=== PATIENT | male | born 1965 | race Hispanic/Latino ===

== ENCOUNTER 2017-08-11 19:56 | Emergency (ER) | payer MEDICARE, MEDICAID ==
[~2017-08-11] VITALS: Ht 167.6 cm; Wt 85.3 kg
[2017-08-11 20:00] VITALS: BP 151/82
[2017-08-11] MEDS ORDERED: Sodium Chloride 500ML 500 ML IV ONE (20:09)
[2017-08-11] MEDS ORDERED: Glucagon 1mg Inj IV ONE (20:15)
[2017-08-11] MEDS ORDERED: ATORVASTATIN CA40 MG ORAL (20:37)
[2017-08-11] MEDS ORDERED: LISINOPRIL20 MG ORAL (20:37)
[2017-08-11] MEDS ORDERED: CATAPRES0.1 MG ORAL (20:37)
[2017-08-11] MEDS ORDERED: HUMALOG100 UNIT/4 SUBQ (20:37)
[2017-08-11] MEDS ORDERED: METOPROLOL TAR100 M1 ORAL (20:37)
[2017-08-11] MEDS ORDERED: ASPIRIN-LOW81 MG ORAL (20:37)
[2017-08-11] MEDS ORDERED: NORVASC10 MG ORAL (20:37)
[2017-08-11] MEDS ORDERED: METFORMIN HCL5000 GM MC (20:37)
[2017-08-11] MEDS ORDERED: ABILIFY20 MG ORAL (20:37)
[2017-08-11 20:48] LABS: BASOPHILS % (AUTO) 0.8 % (0.0-2.0); EOSINOPHILS % (AUTO) 6.3 % (0.0-3.0); HEMOGLOBIN 15.4 G/DL (14.2-18.0); LYMPHOCYTES % (AUTO) 19.3 % (20.0-45.0); MEAN CORPUSCULAR VOLUME 85 FL (80-99); MONOCYTES % (AUTO) 6.6 % (1.0-10.0); NEUTROPHILS % (AUTO) 67.1 % (45.0-75.0); PLATELET COUNT 348 K/UL (150-450); RED BLOOD COUNT 5.39 M/UL (4.70-6.10); RED CELL DISTRIBUTION WIDTH 12.5 % (11.6-14.8); WHITE BLOOD COUNT 9.4 K/UL (4.8-10.8)
[2017-08-11 21:00] VITALS: BP 153/82
[2017-08-11 21:02] LABS: ANION GAP 3 mmol/L (5-15); BLOOD UREA NITROGEN 15 mg/dL (7-18); CALCIUM 9.4 MG/DL (8.5-10.1); CARBON DIOXIDE 33 MMOL/L (21-32); CHLORIDE 104 MMOL/L (98-107); CREATININE 1.1 MG/DL (0.55-1.30); POTASSIUM 4.8 MMOL/L (3.5-5.1); SODIUM 140 MMOL/L (136-145)
[2017-08-11 21:07] LABS: ALANINE AMINOTRANSFERASE 30 U/L (12-78); ALBUMIN 2.7 G/DL (3.4-5.0); ALBUMIN/GLOBULIN RATIO 0.5 (1.0-2.7); ALKALINE PHOSPHATASE 209 U/L (46-116); ASPARTATE AMINO TRANSFERASE 22 U/L (15-37); BILIRUBIN,TOTAL 0.3 MG/DL (0.2-1.0)
[2017-08-11 22:00] VITALS: BP 162/90
--- NOTE | 2017-08-11 22:23 | Emergency Room Report ---
History of Present Illness General Chief Complaint: Choking Source: Patient, EMS (LOC NESS M.D.) Present Illness HPI 51-year-old male presents ED for evaluation. Patient states he [facility] and started choking. Feels that the food is stuck in his throat. States he is unable to drink any fluids. Denies any pain. Notes nausea, denies vomiting. Denies chest pain or shortness of breath. No other aggravating relieving factors. Denies any other associated symptoms (LOC NSES M.D.) Allergies: Coded Allergies: No Known Allergies (Unverified , 08/11/17) Patient History Past Medical History: DM, HTN, asthma Social History: Denies: smoking, alcohol use, drug use Immunizations: UTD Reviewed Nursing Documentation: PMH: Agreed, PSxH: Agreed (LOC NESS M.D.) Nursing Documentation-PMH Past Medical History Deferred: No Family Available Past Medical History: No History, Except For Hx Cardiac Problems: Yes - triple bypass Hx Hypertension: Yes Hx Asthma: Yes Hx Diabetes: Yes (LOC NESS M.D.) Review of Systems All Other Systems: negative except mentioned in HPI (LOC NESS M.D.) Physical Exam Vital Signs Date Time Temp Pulse Resp B/P (MAP) Pulse Ox O2 Delivery O2 Flow Rate FiO2 08/11/17 19:44 98.0 66 16 166/96 98 Room Air 98.1 Sp02 EP Interpretation: reviewed, normal General Appearance: no apparent distress, alert, GCS 15, non-toxic Head: normocephalic, atraumatic Eyes: bilateral eye normal inspection, bilateral eye PERRL ENT: hearing grossly normal, normal pharynx, no angioedema, normal voice Neck: full range of motion, supple/symm/no masses Respiratory: chest non-tender, lungs clear, normal breath sounds, speaking full sentences Cardiovascular #1: regular rate, rhythm, no edema Cardiovascular #2: 2+ carotid (R), 2+ carotid (L), 2+ radial (R), 2+ radial (L) , 2+ dorsalis pedis (R), 2+ dorsalis pedis (L) Gastrointestinal: normal bowel sounds, non tender, soft, non-distended, no guarding, no rebound Rectal: deferred Genitourinary: normal inspection, no CVA tenderness Musculoskeletal: back normal, gait/station normal, normal range of motion, non- tender Neurologic: alert, oriented x3, responsive, motor strength/tone normal, sensory intact, speech normal Psychiatric: judgement/insight normal, memory normal, mood/affect normal, no suicidal/homicidal ideation Reflexes: 3+ bicep (R), 3+ bicep (L), 3+ tricep (R), 3+ tricep (L), 3+ knee (R) , 3+ knee (L) Skin: normal color, no rash, warm/dry, well hydrated Lymphatic: no adenopathy (LOC NESS M.D.) Medical Decision Making Diagnostic Impression: Primary Impression: Sensation of foreign body in throat Additional Impression: GERD (gastroesophageal reflux disease) Qualified Codes: K21.9 - Gastro-esophageal reflux disease without esophagitis Labs Test 08/11/17 20:15 White Blood Count 9.4 K/UL (4.8-10.8) Red Blood Count 5.39 M/UL (4.70-6.10) Hemoglobin 15.4 G/DL (14.2-18.0) Hematocrit 46.0 % (42.0-52.0) Mean Corpuscular Volume 85 FL (80-99) Mean Corpuscular Hemoglobin 28.6 PG (27.0-31.0) Mean Corpuscular Hemoglobin Concent 33.6 G/DL (32.0-36.0) Red Cell Distribution Width 12.5 % (11.6-14.8) Platelet Count 348 K/UL (150-450) Mean Platelet Volume 8.1 FL (6.5-10.1) Neutrophils (%) (Auto) 67.1 % (45.0-75.0) Lymphocytes (%) (Auto) 19.3 % (20.0-45.0) Monocytes (%) (Auto) 6.6 % (1.0-10.0) Eosinophils (%) (Auto) 6.3 % (0.0-3.0) Basophils (%) (Auto) 0.8 % (0.0-2.0) Prothrombin Time 10.0 SEC (9.30-11.50) Prothromb Time International Ratio 1.0 (0.9-1.1) Activated Partial Thromboplast Time 27 SEC (23-33) Sodium Level 140 MMOL/L (136-145) Potassium Level 4.8 MMOL/L (3.5-5.1) Chloride Level 104 MMOL/L (98-107) Carbon Dioxide Level 33 MMOL/L (21-32) Anion Gap 3 mmol/L (5-15) Blood Urea Nitrogen 15 mg/dL (7-18) Creatinine 1.1 MG/DL (0.55-1.30) Estimat Glomerular Filtration Rate > 60 mL/min (>60) Glucose Level 121 MG/DL (74-106) Calcium Level 9.4 MG/DL (8.5-10.1) Total Bilirubin 0.3 MG/DL (0.2-1.0) Aspartate Amino Transf (AST/SGOT) 22 U/L (15-37) Alanine Aminotransferase (ALT/SGPT) 30 U/L (12-78) Alkaline Phosphatase 209 U/L (46-116) Total Protein 8.1 G/DL (6.4-8.2) Albumin 2.7 G/DL (3.4-5.0) Globulin 5.4 g/dL Albumin/Globulin Ratio 0.5 (1.0-2.7) Lipase 108 U/L (73-393) (LOC NESS M.D.) ER Course Patient signed out to me by previous ER doctor to followup CT neck and CT chest for evaluation of foreign body in esophagus. Studies negative for retained foreign body however shows dilation of esophagus consistent with GERD he endorses known GERD but states he is not on treatment for it. Reviewed his list of medications he does not have any PPI or antacid medications. Previous gave patient IV Pepcid, I added on Protonix gave patient prescription for Pepcid Review results of CT with patient, reassured him. Discharge back to SNF (DOUG CORONA M.D.) Last Vital Signs Date Time Temp Pulse Resp B/P (MAP) Pulse Ox O2 Delivery O2 Flow Rate FiO2 08/11/17 19:44 98.0 66 16 166/96 98 Room Air 98.1 (LOC NESS M.D.) Status: improved (DOUG CORONA M.D.) Disposition: XFER SNF Scripts Famotidine (PEPCID) 40 Mg Tablet 40 MG PO DAILY for 7 Days, #7 TAB 0 Refills Prov: DOUG CORONA M.D. 08/12/17 Referrals: NON PHYSICIAN (PCP) LOC NESS M.D. Aug 11, 2017 22:23 DOUG CORONA M.D. Aug 12, 2017 03:49
[2017-08-11 23:00] VITALS: BP 155/92
[2017-08-12] VITALS: BP 166/100
[2017-08-12 01:00] VITALS: BP 173/93
[2017-08-12] MEDS ORDERED: PEPCID40 MG PO (01:25)
[2017-08-12] MEDS ORDERED: Pantoprazole Inj IVP ONE (01:30)
[2017-08-12 02:00] VITALS: BP 152/89
[2017-08-12 02:45] VITALS: BP 169/91
[2017-08-12 03:35] VITALS: BP 158/89
--- NOTE | 2017-08-12 10:54 | Diagnostic Imaging Report ---
Indication: Neck pain. Technique: Continuous helical imaging of the neck was obtained transaxially from the skull base to the upper thoracic spine during intravenous administration of nonionic contrast. 2-D coronal and sagittal reformatted images were obtained. Total Dose length Product (DLP): 846.[address] Dose Index Volume (CTDIvol): 23.44 mGy Comparison: None Findings: There is no aspirated radiopaque foreign body identified. However, the esophagus is dilated and there is a air-fluid level within most of the esophagus. The esophagus is opacified intraluminally at the EG junction. There could very well be food or other ingested material at the EG junction causing a relative obstruction. Sternotomy is noted. There is mucosal thickening in the paranasal sinuses. There are several tiny less than 2 mm nodules within the lungs. These may be disregarded per Fleischner Society criteria. There is a pacemaker present. No adenopathy or abnormal fluid collections are identified. Tiny nonobstructive stone demonstrated within the left kidney. There is no hydronephrosis. Degenerative changes of the thoracic spine noted. IMPRESSION: Food or particulate matter impacted within the distal portion of the esophagus resulting in some degree of esophageal obstruction as the esophagus is moderately dilated. Consider EGD for evaluation and treatment. Other incidental findings as above. Significant discrepancy with regard to the preliminary interpretation by statrad is noted. The preliminary reading stated esophageal dilatation. However the dilatation was attributed to GE reflux rather than distal esophageal obstruction. Findings on this report were discussed with Dr. Jeong in the E.D. at 10:42 am, 08/12/2017. Patient will be recalled to the E.D. for further evaluation and care. The CT scanner at [facility] is accredited by the [employer] and the scans are performed using dose optimization techniques as appropriate to a performed exam including Automatic Exposure control.
== END 2017-08-12 03:35 ==
LOC: EDBD 19:56 → EMR 20:20
DX: R09.89 Other specified symptoms and signs involving the circulatory and respiratory systems (principal); E11.9 Type 2 diabetes mellitus without complications; I10 Essential (primary) hypertension; K21.9 Gastro-esophageal reflux disease without esophagitis; J45.909 Unspecified asthma, uncomplicated; Z95.1 Presence of aortocoronary bypass graft
CPT/HCPCS: 36415; 70491; 71250; 80053; 83690; 85025; 85610; 85730; 96374; 96375; 99284; C9113; J1610; J2405; J7040; Q9967; S0028

== ENCOUNTER 2017-11-14 03:14 | Emergency (ER) | payer MEDICAID, MEDICARE ==
[~2017-11-14] VITALS: Ht 167.6 cm; Wt 104.3 kg
[~2017-11-14 03:14] MED LIST: ABILIFY20 MG ORAL; ASPIRIN-LOW81 MG ORAL; ATORVASTATIN CA40 MG ORAL; CATAPRES0.1 MG ORAL; HUMALOG100 UNIT/4 SUBQ; LISINOPRIL20 MG ORAL; METFORMIN HCL5000 GM MC; METOPROLOL TAR100 M1 ORAL; NORVASC10 MG ORAL; PEPCID40 MG PO
[2017-11-14] MEDS ORDERED: ASPIRIN325 MG ORAL (03:22)
[2017-11-14] MEDS ORDERED: CEPACOL SORETH1 EACH ORAL (03:22)
[2017-11-14] MEDS ORDERED: CYCLOBENZAPRINE10 MG ORAL (03:22)
--- NOTE | 2017-11-14 03:39 | Emergency Room Report ---
History of Present Illness General Chief Complaint: General Complaint Source: Patient Present Illness HPI This a [id number]-year-old male with multiple medical problem. He is in a long-term. He presents with bleeding from his area of tooth extraction. 2 weeks ago he had tooth extraction and tonight nursing staff noticed some blood in his mouth. Centimeter to be evaluated. Patient has no symptom or complaints. Allergies: Coded Allergies: No Known Allergies (Unverified , 08/11/17) Patient History Past Medical History: see triage record, old chart reviewed, DM, HTN Past Surgical History: other Pertinent Family History: none Social History: Denies: smoking Immunizations: other Reviewed Nursing Documentation: PMH: Agreed; PSxH: Agreed Nursing Documentation-PMH Hx Cardiac Problems: Yes - triple bypass Hx Hypertension: Yes Hx Asthma: Yes Hx Diabetes: Yes History Of Psychiatric Problem: Yes - depressive disorder Review of Systems Eye: Denies: eye pain, blurred vision ENT: Denies: ear pain, nose congestion, throat swelling Respiratory: Denies: cough, shortness of breath Cardiovascular: Denies: chest pain, palpitations Gastrointestinal: Denies: abdominal pain, diarrhea, nausea, vomiting Musculoskeletal: Denies: back pain, joint pain Skin: Denies: rash Neurological: Denies: headache, numbness Endocrine: Denies: increased thirst, increased urine Hematologic/Lymphatic: Denies: easy bruising All Other Systems: negative except mentioned in HPI Physical Exam Vital Signs Date Time Temp Pulse Resp B/P (MAP) Pulse Ox O2 Delivery O2 Flow Rate FiO2 11/14/17 03:13 97.8 78 16 134/86 96 Room Air 97.9 vitals normal Sp02 EP Interpretation: reviewed, normal General Appearance: well appearing, no apparent distress, alert Head: normocephalic, atraumatic Eyes: bilateral eye PERRL, bilateral eye EOMI ENT: hearing grossly normal, normal pharynx, other - Site of his left upper molar tooth extraction has a small clot. Is losing blood once I remove it. No evidence of infection. Neck: full range of motion, supple, no meningismus Respiratory: chest non-tender, lungs clear, normal breath sounds Cardiovascular #1: regular rate, rhythm, no murmur Gastrointestinal: normal bowel sounds, non tender, no mass, no organomegaly, no bruit, non-distended Musculoskeletal: back normal, normal range of motion Neurologic: alert, oriented x3 Psychiatric: mood/affect normal Skin: warm/dry Medical Decision Making Diagnostic Impression: Primary Impression: Surgical wound hemorrhage after dental procedure ER Course Patient presents with post-tooth extraction bleeding. I injected some 1% lidocaine with epinephrine in that area. That seemed to slow down the bleeding. I placed Surgicel at the wound and had him hold pressure. Bleeding stopped. Was sent back to long-term. No evidence of infection. Last Vital Signs Date Time Temp Pulse Resp B/P (MAP) Pulse Ox O2 Delivery O2 Flow Rate FiO2 11/14/17 03:13 97.8 78 16 134/86 96 Room Air 97.9 Status: improved Disposition: [facility] SN[facility] Condition: Stable Additional Instructions: follow-up with dentist as needed. Hold pressure if bleeding. Return if worse. CHANDU KERR M.D. Nov 14, 2017 03:39
[2017-11-14 04:02] VITALS: BP 129/78
[2017-11-14 04:08] VITALS: BP 129/78
== END 2017-11-14 04:09 ==
LOC: EDBD 03:14 → EMR 03:30
DX: K91.840 Postprocedural hemorrhage of a digestive system organ or structure following a digestive system procedure (principal); Y84.8 Other medical procedures as the cause of abnormal reaction of the patient, or of later complication, without mention of misadventure at the time of the procedure; Y92.129 Unspecified place in nursing home as the place of occurrence of the external cause; E11.9 Type 2 diabetes mellitus without complications; J45.909 Unspecified asthma, uncomplicated; I10 Essential (primary) hypertension
CPT/HCPCS: 99283

== ENCOUNTER 2018-04-06 12:51 | Emergency (ER) | payer MEDICARE, MEDICAID ==
[~2018-04-06] VITALS: Ht 172.7 cm; Wt 81.6 kg
[~2018-04-06 12:51] MED LIST changes: +ASPIRIN325 MG ORAL; +CEPACOL SORETH1 EACH ORAL; +CYCLOBENZAPRINE10 MG ORAL
[2018-04-06 12:56] VITALS: BP 107/71
[2018-04-06] MEDS ORDERED: Nitroglycerin 2% oint pkt TOPIC ONE (13:15)
[2018-04-06 13:42] LABS: BASOPHILS % (AUTO) 0.9 % (0.0-2.0); EOSINOPHILS % (AUTO) 4.9 % (0.0-3.0); HEMATOCRIT 37.6 % (42.0-52.0); HEMOGLOBIN 12.4 G/DL (14.2-18.0); LYMPHOCYTES % (AUTO) 21.2 % (20.0-45.0); MEAN CORPUSCULAR VOLUME 86 FL (80-99); NEUTROPHILS % (AUTO) 66.1 % (45.0-75.0); PLATELET COUNT 284 K/UL (150-450); RED CELL DISTRIBUTION WIDTH 11.2 % (11.6-14.8); WHITE BLOOD COUNT 8.3 K/UL (4.8-10.8)
[2018-04-06 13:54] LABS: ANION GAP 8 mmol/L (5-15); BLOOD UREA NITROGEN 22 mg/dL (7-18); CALCIUM 8.9 MG/DL (8.5-10.1); CARBON DIOXIDE 27 MMOL/L (21-32); CHLORIDE 107 MMOL/L (98-107); CREATININE 0.9 MG/DL (0.55-1.30); POTASSIUM 4.4 MMOL/L (3.5-5.1); SODIUM 142 MMOL/L (136-145)
[2018-04-06 14:04] LABS: ALANINE AMINOTRANSFERASE 22 U/L (12-78); ALBUMIN 2.4 G/DL (3.4-5.0); ALBUMIN/GLOBULIN RATIO 0.5 (1.0-2.7); ALKALINE PHOSPHATASE 174 U/L (46-116); ASPARTATE AMINO TRANSFERASE 17 U/L (15-37); BILIRUBIN,TOTAL 0.2 MG/DL (0.2-1.0); CREATINE KINASE 20 U/L (26-308)
--- NOTE | 2018-04-06 14:09 | Diagnostic Imaging Report ---
EXAM: XR Chest, 1 View CLINICAL HISTORY: Chest pain TECHNIQUE: Frontal view of the chest. COMPARISON: CT chest dated 08/11/17 FINDINGS: Lungs: Unremarkable. The lungs appear clear. No confluent pulmonary opacities. Pleural space: Unremarkable. The costophrenic angles are sharp. No visible pneumothorax. Heart: Unremarkable. No cardiomegaly. Mediastinum: Unremarkable. Bones/joints: Patient is status post median sternotomy. Tubes, lines and devices: Cardiac pacer/ICD in the left chest wall with lead tips in the right atrium and ventricle. EKG leads overlie the thorax. IMPRESSION: No acute findings.
--- NOTE | 2018-04-06 14:26 | Emergency Room Report ---
History of Present Illness General Chief Complaint: Chest Pain Source: Patient, EMS (Phillip Pierre MD) Present Illness HPI Patient is brought in by EMS from longterm facility. He was complaining about chest pain. He felt like someone was standing on his chest. When he began the pain was 7/10. After treatment with aspirin and nitrates in the field the patient's pain is resolved completely. Patient is a risk factor of prior coronary artery disease and is post bypass graft surgery. The pain lasted several hours. No fevers, cough, chills, sore throat, NVD, dysuria. H/O schizophrenia and depression. No SI or HI. On medication. Post stroke. (Phillip Pierre MD) Allergies: Coded Allergies: No Known Allergies (Unverified , 08/11/17) Patient History Past Medical History: see triage record Past Surgical History: CABG Social History Narrative DO NOT RESUSCitate Born in [place] Reviewed Nursing Documentation: PMH: Agreed; PSxH: Agreed (Phillip Pierre MD) Nursing Documentation-PMH Past Medical History: No History, Except For Hx Cardiac Problems: Yes - triple bypass Hx Hypertension: Yes Hx Pacemaker: Yes Hx Asthma: Yes Hx Diabetes: Yes History Of Psychiatric Problem: Yes - schizo Hx Neurological Problems: Yes - depression. SI. (Phillip Pierre MD) Review of Systems All Other Systems: negative except mentioned in HPI (Phillip Pierre MD) Physical Exam Vital Signs Date Time Temp Pulse Resp B/P (MAP) Pulse Ox O2 Delivery O2 Flow Rate FiO2 04/06/18 12:46 97.3 79 18 107/71 97 Room Air Sp02 EP Interpretation: reviewed, normal General Appearance: no apparent distress, GCS 15, other - short stature, Chronically Ill Head: normocephalic Eyes: bilateral eye normal inspection, bilateral eye PERRL ENT: moist mucus membranes - poor dentition Neck: supple Respiratory: lungs clear, normal breath sounds Cardiovascular #1: regular rate, rhythm, no edema Cardiovascular #2: 2+ radial (R) Gastrointestinal: normal inspection, normal bowel sounds, non tender, no mass, non-distended Genitourinary: other - diaper Musculoskeletal: back normal, other - Some LE rigidity - atrophy Neurologic: alert, motor weakness - LE and more L, oriented - X2 Psychiatric: mood/affect normal Skin: normal inspection, warm/dry (Phillip Pierre MD) Medical Decision Making Diagnostic Impression: Primary Impression: Chest pain Qualified Codes: R07.9 - Chest pain, unspecified Additional Impression: ACS (acute coronary syndrome) ER Course Patient presents with chest pain which he states is the same as when he needed CABG. DDX: AMI, ACS, GERD, costochondritis, PE, pneumonia amongst others. Evaluation with EKG, CXR, labs. As pain free (after NTG and aspirin) will treat with nitro-paste. Significant cardiac risk factors. EKG without injury - NSSTTW changes. CXR with prior bypass and implanted defib. Labs with normal CBC (slight anemia). CMP with elevated BUN. Normal troponin. Urine + nitrite, but no WBC. Patient continued pain free, however, due to risk factors, need to R/O ACS. Signed out to Dr. De Paz. Laboratory Tests Test 04/06/18 13:10 04/06/18 13:50 White Blood Count 8.3 K/UL (4.8-10.8) Red Blood Count 4.40 M/UL (4.70-6.10) L Hemoglobin 12.4 G/DL (14.2-18.0) L Hematocrit 37.6 % (42.0-52.0) L Mean Corpuscular Volume 86 FL (80-99) Mean Corpuscular Hemoglobin 28.1 PG (27.0-31.0) Mean Corpuscular Hemoglobin Concent 32.9 G/DL (32.0-36.0) Red Cell Distribution Width 11.2 % (11.6-14.8) L Platelet Count 284 K/UL (150-450) Mean Platelet Volume 8.0 FL (6.5-10.1) Neutrophils (%) (Auto) 66.1 % (45.0-75.0) Lymphocytes (%) (Auto) 21.2 % (20.0-45.0) Monocytes (%) (Auto) 7.0 % (1.0-10.0) Eosinophils (%) (Auto) 4.9 % (0.0-3.0) H Basophils (%) (Auto) 0.9 % (0.0-2.0) Prothrombin Time 10.4 SEC (9.30-11.50) Prothrombin Time INR 1.0 (0.9-1.1) PTT 28 SEC (23-33) Sodium Level 142 MMOL/L (136-145) Potassium Level 4.4 MMOL/L (3.5-5.1) Chloride Level 107 MMOL/L (98-107) Carbon Dioxide Level 27 MMOL/L (21-32) Anion Gap 8 mmol/L (5-15) Blood Urea Nitrogen 22 mg/dL (7-18) H Creatinine 0.9 MG/DL (0.55-1.30) Estimate Glomerular Filtration Rate > 60 mL/min (>60) Glucose Level 109 MG/DL (74-106) H Calcium Level 8.9 MG/DL (8.5-10.1) Total Bilirubin 0.2 MG/DL (0.2-1.0) Aspartate Amino Transferase (AST) 17 U/L (15-37) Alanine Aminotransferase (ALT) 22 U/L (12-78) Alkaline Phosphatase 174 U/L (46-116) H Total Creatine Kinase 20 U/L (26-308) L Troponin I 0.004 ng/mL (0.000-0.056) Pro-B-Type Natriuretic Peptide 274 pg/mL (0-125) H Total Protein 6.9 G/DL (6.4-8.2) Albumin 2.4 G/DL (3.4-5.0) L Globulin 4.5 g/dL Albumin/Globulin Ratio 0.5 (1.0-2.7) L Lipase 79 U/L (73-393) Urine Color Yellow Urine Appearance Slightly cloudy Urine pH 5 (4.5-8.0) Urine Specific [place] 1.025 (1.005-1.035) Urine Protein 3+ (NEGATIVE) H Urine Glucose (UA) Negative (NEGATIVE) Urine Ketones 3+ (NEGATIVE) H Urine Blood Negative (NEGATIVE) Urine Nitrite Positive (NEGATIVE) H Urine Bilirubin Negative (NEGATIVE) Urine Urobilinogen 1 MG/DL (0.0-1.0) H Urine Leukocyte Esterase 1+ (NEGATIVE) H Urine RBC 0 /HPF (0 - 0) Urine WBC 0 /HPF (0 - 0) Urine Squamous Epithelial Cells Occasional /LPF Urine Bacteria None /HPF (NONE) (Phillip Pierre MD) ER Course The patient was endorsed to me by Dr. Pierre. The patient was noted to have prior history of CABG and diabetes and hypertension presented for chest discomfort. This resolved with nitroglycerin. The patient's initial laboratory testing had unremarkable troponinas well as elevated BNP. The patient was discussed with [facility] of physician for possible transfer. The patient was accepted for transfer to [facility]. Labs Test 04/06/18 13:10 04/06/18 13:50 White Blood Count 8.3 K/UL (4.8-10.8) Red Blood Count 4.40 M/UL (4.70-6.10) Hemoglobin 12.4 G/DL (14.2-18.0) Hematocrit 37.6 % (42.0-52.0) Mean Corpuscular Volume 86 FL (80-99) Mean Corpuscular Hemoglobin 28.1 PG (27.0-31.0) Mean Corpuscular Hemoglobin Concent 32.9 G/DL (32.0-36.0) Red Cell Distribution Width 11.2 % (11.6-14.8) Platelet Count 284 K/UL (150-450) Mean Platelet Volume 8.0 FL (6.5-10.1) Neutrophils (%) (Auto) 66.1 % (45.0-75.0) Lymphocytes (%) (Auto) 21.2 % (20.0-45.0) Monocytes (%) (Auto) 7.0 % (1.0-10.0) Eosinophils (%) (Auto) 4.9 % (0.0-3.0) Basophils (%) (Auto) 0.9 % (0.0-2.0) Prothrombin Time 10.4 SEC (9.30-11.50) Prothromb Time International Ratio 1.0 (0.9-1.1) Activated Partial Thromboplast Time 28 SEC (23-33) Sodium Level 142 MMOL/L (136-145) Potassium Level 4.4 MMOL/L (3.5-5.1) Chloride Level 107 MMOL/L (98-107) Carbon Dioxide Level 27 MMOL/L (21-32) Anion Gap 8 mmol/L (5-15) Blood Urea Nitrogen 22 mg/dL (7-18) Creatinine 0.9 MG/DL (0.55-1.30) Estimat Glomerular Filtration Rate > 60 mL/min (>60) Glucose Level 109 MG/DL (74-106) Calcium Level 8.9 MG/DL (8.5-10.1) Total Bilirubin 0.2 MG/DL (0.2-1.0) Aspartate Amino Transf (AST/SGOT) 17 U/L (15-37) Alanine Aminotransferase (ALT/SGPT) 22 U/L (12-78) Alkaline Phosphatase 174 U/L (46-116) Total Creatine Kinase 20 U/L (26-308) Troponin I 0.004 ng/mL (0.000-0.056) Pro-B-Type Natriuretic Peptide 274 pg/mL (0-125) Total Protein 6.9 G/DL (6.4-8.2) Albumin 2.4 G/DL (3.4-5.0) Globulin 4.5 g/dL Albumin/Globulin Ratio 0.5 (1.0-2.7) Lipase 79 U/L (73-393) Urine Color Yellow Urine Appearance Slightly cloudy Urine pH 5 (4.5-8.0) Urine Specific [place] 1.025 (1.005-1.035) Urine Protein 3+ (NEGATIVE) Urine Glucose (UA) Negative (NEGATIVE) Urine Ketones 3+ (NEGATIVE) Urine Blood Negative (NEGATIVE) Urine Nitrite Positive (NEGATIVE) Urine Bilirubin Negative (NEGATIVE) Urine Urobilinogen 1 MG/DL (0.0-1.0) Urine Leukocyte Esterase 1+ (NEGATIVE) Urine RBC 0 /HPF (0 - 0) Urine WBC 0 /HPF (0 - 0) Urine Squamous Epithelial Cells Occasional /LPF Urine Bacteria None /HPF (NONE) (Porfirio De Paz MD) EKG Diagnostic Results Rate: normal Rhythm: NSR ST Segments: no acute changes - Left axis deviation nonspecific ST-T wave changes (Phillip Pierre MD) Rhythm Strip Diag. Results EP Interpretation: yes Rhythm: NSR, no PVC's, no ectopy (Phillip Pierre MD) Chest X-Ray Diagnostic Results Chest X-Ray Diagnostic Results : Chest X-Ray Ordered: Yes # of Views/Limited/Complete: 1 View Indication: Chest Pain Interpretation: no consolidation, no effusion, no pneumothorax, other - Post CABG and pacemaker Impression: Other Electronically Signed by: Electronically signed by Phillip Pierre MD (Phillip Pierre MD) Last Vital Signs Date Time Temp Pulse Resp B/P (MAP) Pulse Ox O2 Delivery O2 Flow Rate FiO2 04/06/18 16:40 98.0 62 14 124/84 100 Room Air Status: improved (Phillip Pierre MD) Status: improved (Porfirio De Paz MD) Disposition: ADMITTED INPATIENT Condition: Serious Referrals: NON PHYSICIAN (PCP) Phillip Pierre MD Apr 06, 2018 14:26 Porfirio De Paz MD Apr 06, 2018 16:03
[2018-04-06 14:34] VITALS: BP 112/79
[2018-04-06 14:51] LABS: BILIRUBIN, URINE NEGATIVE (NEGATIVE); GLUCOSE, URINE (UA) NEGATIVE (NEGATIVE); PH,URINE 5 (4.5-8.0); PROTEIN,URINE 3+ (NEGATIVE); UROBILINOGEN,URINE 1 MG/DL (0.0-1.0)
[2018-04-06 15:02] LABS: APPEARANCE,URINE SLIGHTLY CLOUDY; KETONES,URINE 3+ (NEGATIVE); LEUKOCYTE ESTERASE ,URINE 1+ (NEGATIVE); NITRITE,URINE POSITIVE (NEGATIVE)
[2018-04-06 15:06] LABS: COLOR,URINE YELLOW
[2018-04-06 16:40] VITALS: BP 124/84
[2018-04-06 18:45] VITALS: BP 124/80
== END 2018-04-06 18:45 | disposition short-term general hospital (02) ==
LOC: EDBD 12:51 → EMR 14:00
DX: I24.9 Acute ischemic heart disease, unspecified (principal); E11.9 Type 2 diabetes mellitus without complications; I10 Essential (primary) hypertension; Z95.1 Presence of aortocoronary bypass graft; Z95.0 Presence of cardiac pacemaker; F20.9 Schizophrenia, unspecified; F32.9 Major depressive disorder, single episode, unspecified
CPT/HCPCS: 36415; 71045; 80053; 81003; 82550; 83690; 83880; 84484; 85025; 85610; 85730; 87081; 93005; 99285

== ENCOUNTER 2018-07-11 12:15 | Inpatient (IN) | payer MEDICARE, MEDICAID ==
[~2018-07-11] VITALS: Ht 167.6 cm; Wt 81.6 kg
[2018-07-11 12:20] VITALS: BP 151/86
--- NOTE | 2018-07-11 12:20 | NUR ---
ED Nurse Note: brought in by HERON from [facility] due to loss of appetite x2 days. Denies any pain. A/Ox4, slurred speech due to Hx of stroke with right sided weakness. Skin intact except scar tissues from previous surgeries. Pacemaker on left upper chest. No s/s of distress. All blood specimen and urine sample sent down to the lab.
[2018-07-11 13:06] LABS: ANION GAP 6 mmol/L (5-15); BASOPHILS % (AUTO) 1.6 % (0.0-2.0); BLOOD UREA NITROGEN 14 mg/dL (7-18); CALCIUM 8.7 MG/DL (8.5-10.1); CARBON DIOXIDE 30 MMOL/L (21-32); CHLORIDE 106 MMOL/L (98-107); CREATININE 0.9 MG/DL (0.55-1.30); EOSINOPHILS % (AUTO) 4.8 % (0.0-3.0); HEMATOCRIT 40.1 % (42.0-52.0); HEMOGLOBIN 13.5 G/DL (14.2-18.0); LYMPHOCYTES % (AUTO) 26.4 % (20.0-45.0); MEAN CORPUSCULAR VOLUME 86 FL (80-99); MONOCYTES % (AUTO) 7.2 % (1.0-10.0); NEUTROPHILS % (AUTO) 60.1 % (45.0-75.0); PLATELET COUNT 179 K/UL (150-450); POTASSIUM 4.8 MMOL/L (3.5-5.1); RED BLOOD COUNT 4.67 M/UL (4.70-6.10); SODIUM 142 MMOL/L (136-145); WHITE BLOOD COUNT 6.1 K/UL (4.8-10.8)
[2018-07-11 13:07] LABS: APPEARANCE,URINE CLEAR; BILIRUBIN, URINE NEGATIVE (NEGATIVE); COLOR,URINE PALE YELLOW; GLUCOSE, URINE (UA) NEGATIVE (NEGATIVE); KETONES,URINE NEGATIVE (NEGATIVE); LEUKOCYTE ESTERASE ,URINE NEGATIVE (NEGATIVE); NITRITE,URINE NEGATIVE (NEGATIVE); PH,URINE 8 (4.5-8.0); PROTEIN,URINE 3+ (NEGATIVE); UROBILINOGEN,URINE NORMAL MG/DL (0.0-1.0)
[2018-07-11 13:11] LABS: ALANINE AMINOTRANSFERASE 27 U/L (12-78); ALBUMIN 2.9 G/DL (3.4-5.0); ALBUMIN/GLOBULIN RATIO 0.7 (1.0-2.7); ALKALINE PHOSPHATASE 203 U/L (46-116); ASPARTATE AMINO TRANSFERASE 25 U/L (15-37); BILIRUBIN,TOTAL 0.3 MG/DL (0.2-1.0); CREATINE KINASE 23 U/L (26-308)
--- NOTE | 2018-07-11 13:39 | Emergency Room Report ---
History of Present Illness General Chief Complaint: General Complaint Source: Patient, Medical Record Present Illness HPI 52-year-old male with history of hypertension, diabetes, high cholesterol, stroke with residual right hemiparesis, pacemaker, sent by Dr. Díaz for failure to thrive. Patient reports that he has no pain complaints, he does feel nauseated, denies fevers, chills breath, any other complaints at all, he just reports that he can't be eating just to eat. He admits that he just has no appetite and generally feels nauseated. Allergies: Coded Allergies: No Known Allergies (Unverified , 08/11/17) Patient History Past Medical History: see triage record Reviewed Nursing Documentation: PMH: Agreed; PSxH: Agreed Nursing Documentation-PMH Past Medical History: No History, Except For Hx Cardiac Problems: Yes - triple bypass Hx Hypertension: Yes Hx Pacemaker: Yes Hx Asthma: Yes Hx Diabetes: Yes Hx Neurological Problems: Yes - depression. SI. Review of Systems All Other Systems: negative except mentioned in HPI Physical Exam Vital Signs Date Time Temp Pulse Resp B/P (MAP) Pulse Ox O2 Delivery O2 Flow Rate FiO2 07/11/18 12:17 98.4 66 19 156/96 96 Room Air Sp02 EP Interpretation: reviewed, normal General Appearance: no apparent distress, alert, non-toxic Head: normocephalic Eyes: bilateral eye normal inspection, bilateral eye PERRL, bilateral eye EOMI ENT: normal ENT inspection, hearing grossly normal, normal pharynx, no angioedema, normal voice, moist mucus membranes Neck: normal inspection, full range of motion, supple, supple/symm/no masses Respiratory: chest non-tender, lungs clear, normal breath sounds, chest symmetrical, palpation of chest normal Cardiovascular #1: normal peripheral pulses, regular rate, rhythm, no edema, no gallop, no JVD, no murmur, no rub, other - L chest PPM site c/d/i Cardiovascular #2: 2+ radial (R), 2+ radial (L) Gastrointestinal: normal inspection, non tender, soft, no mass, no guarding, no rebound Rectal: deferred Genitourinary: normal inspection, no CVA tenderness Musculoskeletal: back normal, gait/station normal, normal range of motion, non- tender, no calf tenderness Neurologic: alert, responsive, associate software developer III-XII nml as tested - mild R facial droop , motor strength/tone normal - R HP, sensory intact, speech normal Psychiatric: judgement/insight normal, memory normal, mood/affect normal, no suicidal/homicidal ideation Skin: normal color, no rash, warm/dry, normal turgor Lymphatic: no adenopathy Medical Decision Making Diagnostic Impression: Primary Impression: Failure to thrive ER Course Patient for unremarkable workup, but is not eating well, will admit for failure to thrive. EKG Diagnostic Results EKG Time: 12:32 EP Interpretation: no stemi Rate: normal Rhythm: NSR ST Segments: no acute changes ASA given to the pt in ED: No Rhythm Strip Diag. Results Rhythm Strip Time: 13:37 EP Interpretation: yes Rate: 73 Rhythm: NSR, no PVC's, no ectopy Chest X-Ray Diagnostic Results Chest X-Ray Diagnostic Results : Chest X-Ray Ordered: Yes # of Views/Limited/Complete: 1 View Indication: Other - failure to thrive EP Interpretation: Yes PA Xray: Interpretation reviewed Interpretation: no consolidation, no effusion, no pneumothorax, no acute cardiopulmonary disease, other - L chest PPM leads intact Impression: No acute disease Electronically Signed by: Dion Willis MD Last Vital Signs Date Time Temp Pulse Resp B/P (MAP) Pulse Ox O2 Delivery O2 Flow Rate FiO2 07/11/18 12:20 66 19 Room Air 07/11/18 12:20 98.4 151/86 100 Disposition: ADMITTED INPATIENT Condition: Stable Referrals: NON PHYSICIAN (PCP) DION WILLIS M.D Jul 11, 2018 13:39
--- NOTE | 2018-07-11 13:50 | NUR ---
ED Nurse Note: contacted lab to run lactic acid
[2018-07-11] MEDS ORDERED: Miralax 17gm pkt ORAL PRN (14:15)
[2018-07-11] MEDS ORDERED: Morphine Sulfate 4mg/ml Inj (IV/IM USE ONLY) IVP PRN (14:15)
[2018-07-11] MEDS ORDERED: Mylanta II UD 30ml ORAL PRN (14:15)
[2018-07-11] MEDS ORDERED: LORazepam Inj 2mg/ml 1ml IV PRN (14:15)
[2018-07-11] MEDS ORDERED: Zolpidem 5mg tab ORAL PRN (14:15)
[2018-07-11] MEDS ORDERED: Dextrose 50% 25ml Syringe IV PRN (14:30)
[2018-07-11 14:34] VITALS: BP 132/80
--- NOTE | 2018-07-11 16:30 | Diagnostic Imaging Report ---
Indication: Chest pain Technique: One view of the chest Comparison: 04/06/2018 Findings: Lungs and pleural spaces are clear. There is a left chest 3-lead AICD. The heart size is normal. No significant interim change Impression: No acute process
[2018-07-11 17:00] VITALS: BP 132/86
--- NOTE | 2018-07-11 17:30 | NUR ---
ED Nurse Note: attempted to give telephone report. Receiving RN is not ready to receive report at this time, will call back in ten min
--- NOTE | 2018-07-11 17:49 | NUR ---
ED Nurse Note: telephone report given to RODRÍGUEZ Timmons. Will transfer the pt up.
--- NOTE | 2018-07-11 17:56 | NUR ---
NURSE NOTES: Received report from ANDIE Swift RN.
--- NOTE | 2018-07-11 18:01 | NUR ---
TRANSFER TO FLOOR: Patient transferred to [facility]- as ordered via gurney by JUAN CARLOS Ybarra. Belongings and given to [facility] EMT. No s/s of distress.
[2018-07-11 18:02] VITALS: BP 147/83
[2018-07-11 18:17] VITALS: BP 129/76
[2018-07-11] MEDS ORDERED: METFORMIN HCL500 M1 ORAL (18:17)
[2018-07-11] MEDS ORDERED: ZESTRIL40 MG ORAL (18:17)
[2018-07-11] MEDS ORDERED: PROTONIX40 MG ORAL (18:17)
[2018-07-11] MEDS ORDERED: MIRTAZAPINE30 MG ORAL (18:17)
[2018-07-11] MEDS ORDERED: METOPROLOL TAR100 M1 ORAL (18:17)
[2018-07-11] MEDS ORDERED: RISPERDAL1 MG PO (18:17)
[2018-07-11] MEDS ORDERED: ATORVASTATIN CA20 MG ORAL (18:17)
--- NOTE | 2018-07-11 19:34 | NUR ---
HAND-OFF: Report given to RODRÍGUEZ Graf.
--- NOTE | 2018-07-11 19:35 | NUR ---
NURSE NOTES: Received patient in no apparent distress. A&OX4. IV sites are patent and intact. Redness on sacral noted, dressing changed. Bed in lowest position. Call light within reach. Will continue to monitor.
[2018-07-11 20:00] VITALS: BP 131/85
[2018-07-12] VITALS: BP 131/78
[2018-07-12 04:00] VITALS: BP 136/82
[2018-07-12] MEDS: NovoLOG Insulin Flexpen SUBQ SCH ×4 (06:30→20:59)
--- NOTE | 2018-07-12 07:05 | NUR ---
HAND-OFF: Report given to Amelia SPAULDING.
[2018-07-12 07:45] LABS: BASOPHILS % (AUTO) 1.6 % (0.0-2.0); HEMATOCRIT 39.1 % (42.0-52.0); MEAN CORPUSCULAR VOLUME 86 FL (80-99); MONOCYTES % (AUTO) 7.7 % (1.0-10.0); NEUTROPHILS % (AUTO) 58.8 % (45.0-75.0); PLATELET COUNT 158 K/UL (150-450); RED BLOOD COUNT 4.55 M/UL (4.70-6.10); WHITE BLOOD COUNT 6.6 K/UL (4.8-10.8)
[2018-07-12 08:00] VITALS: BP 111/73
[2018-07-12 08:17] LABS: ALANINE AMINOTRANSFERASE 24 U/L (12-78); ALBUMIN 2.8 G/DL (3.4-5.0); ALBUMIN/GLOBULIN RATIO 0.7 (1.0-2.7); ALKALINE PHOSPHATASE 192 U/L (46-116); ANION GAP 8 mmol/L (5-15); ASPARTATE AMINO TRANSFERASE 18 U/L (15-37); BILIRUBIN,TOTAL 0.5 MG/DL (0.2-1.0); BLOOD UREA NITROGEN 10 mg/dL (7-18); CARBON DIOXIDE 27 MMOL/L (21-32); CHLORIDE 106 MMOL/L (98-107); CHOLESTEROL 96 MG/DL (< 200); CREATININE 0.8 MG/DL (0.55-1.30); HDL CHOLESTEROL 37 MG/DL (40-60); POTASSIUM 3.9 MMOL/L (3.5-5.1); SODIUM 141 MMOL/L (136-145); TRIGLYCERIDES 87 MG/DL (30-150)
[2018-07-12] MEDS: Cyclobenzaprine 10mg Tab ORAL SCH (08:26)
[2018-07-12] MEDS: Lisinopril 20mg tab ORAL SCH (08:27)
[2018-07-12] MEDS ORDERED: ARIPiprazole 10mg tab ORAL SCH (09:00)
--- NOTE | 2018-07-12 09:09 | History & Physical ---
History and Physical History & Physicial dict Shyam Fu MD Jul 12, 2018 09:09
--- NOTE | 2018-07-12 10:56 | NUR ---
NURSE NOTES: Received patient in no apparent distress. A&OX4, verbally responsive. IV sites are patent and intact. skin is intact. SPR inplaced for skin integrity. Bed in lowest position. siderails are up for safety. Call light within reach. Will continue to monitor.
--- NOTE | 2018-07-12 11:15 | History and Physical Report ---
DATE OF ADMISSION: 07/11/2018 HISTORY OF PRESENT ILLNESS: The patient is a 52-year-old man, who comes to the hospital from [facility] due to poor intake. Apparently, he was not eating and states he has no appetite. He has no abdominal pain, nausea, or vomiting. Since admission, he ate well however. Review of his laboratory studies does show elevated liver enzymes. PAST MEDICAL HISTORY: He is a poor historian. The records were reviewed. He has a history of stroke with right hemiparesis, hypertension, chronic kidney disease, diabetes, schizoaffective disorder, depression, coronary bypass surgery, and hyperlipidemia. Cardiac defibrillator, bipolar disorder, code status DNR per POLST. ALLERGIES: None. MEDICATIONS: Reviewed. REVIEW OF SYSTEMS: Apparently, he has been losing weight, although it is not documented regarding how many pounds he has lost. Nurse indicate he has been losing weight for six months. PHYSICAL EXAMINATION: GENERAL: The patient is alert and responsive. He speaks very softly. He has no distress. VITAL SIGNS: Show normal findings. Saturation is normal. SKIN: Warm and dry. HEENT: Head is normocephalic. He is overweight. NECK: No jugular venous distention. CHEST: Clear. CARDIAC: Rhythm is regular. Sternal scar has healed. ABDOMEN: Soft and nontender. Liver and spleen are not enlarged. EXTREMITIES: No clubbing, cyanosis, or edema. LABORATORY AND DIAGNOSTIC DATA: Laboratory studies show normal renal function and electrolytes. Blood sugar is normal. Alkaline phosphatase is elevated. ALT and AST are normal. Albumin is low at 2.8. LDL is 37. TSH is normal. Urinalysis is negative. Hemoglobin is 13 and white count and platelets are normal. IMPRESSION: 1. Poor appetite and weight loss. 2. History of hypertension. 3. History of coronary bypass surgery. 4. Schizoaffective disorder. PLAN: The patient will have abdominal ultrasound regarding his elevated liver enzymes. If he continues to eat well, then he will be discharged back to the facility in a timely manner. Shyam Fu M.D. DR: GIA JOB#: [id number] CC: Shyam Fu M.D.; Fax#: [phone] Fernanda Díaz M.D.
[2018-07-12 11:52] VITALS: BP 115/70
--- NOTE | 2018-07-12 12:50 | Consultation ---
History of Present Illness General Chief Complaint: General Complaint Present Illness HPI 52-year-old man, with hx of mdd and schizophrenia who was admitted to the hospital from [facility] due to poor intake. The pt was not eating and stated that he doesnt care if he dies. the pt was min verbal and has psychomotor retardation. the pt is well know to me and appears severely depressed. Allergies: Coded Allergies: No Known Allergies (Unverified , 08/11/17) Medication History Scheduled Amlodipine Besylate (Norvasc), 10 MG ORAL DAILY, (Reported) Aripiprazole* (Abilify*), 20 MG ORAL DAILY, (Reported) Aspirin (Aspirin EC), 81 MG ORAL DAILY, (Reported) Atorvastatin Calcium* (Atorvastatin Calcium*), 20 MG ORAL BEDTIME, (Reported) Clonidine Hcl* (Catapres*), 0.1 MG ORAL EVERY 6 HOURS, (Reported) Lisinopril* (Zestril*), 40 MG ORAL DAILY, (Reported) Metformin Hcl* (Metformin Hcl*), 500 MG ORAL TWICE A DAY, (Reported) Metoprolol Tartrate* (Metoprolol Tartrate*), 100 MG ORAL EVERY 12 HOURS, ( Reported) Mirtazapine* (Remeron*), 30 MG ORAL BEDTIME, (Reported) Pantoprazole* (Protonix*), 40 MG ORAL DAILY, (Reported) Risperidone* (Risperdal*), 1 MG PO QHS, (Reported) Scheduled PRN Cyclobenzaprine Hcl* (Flexeril*), 10 MG ORAL HS PRN for MUSCLE SPASM, (Reported) Miscellaneous Medications Insulin Lispro (Humalog), 0 SUBQ, (Reported) Discontinued Medications Aspirin* (Aspirin*), 325 MG ORAL DAILY, (Reported) Discontinued Reason: Therapy completed Atorvastatin Calcium* (Atorvastatin Calcium*), 40 MG ORAL BEDTIME, (Reported) Discontinued Reason: Prescription changed Dextromethorphan Hbr/B-Jacinto (Cepacol Sorethroat-Cough Azucena*), 1 LOZENGE ORAL Q4H PRN for For Cough, (Reported) Discontinued Reason: Therapy completed Famotidine (Pepcid), 40 MG PO DAILY Discontinued Reason: Therapy completed Lisinopril (Lisinopril*), 40 MG ORAL DAILY, (Reported) Discontinued Reason: Prescription changed Patient History Limited by: medical condition History Provided By: Patient, Medical Record Healthcare decision maker Resuscitation status Do Not Resuscitate Advanced Directive on File No Past Medical/Surgical History Past Medical/Surgical History: (1) Failure to thrive (2) FTT (failure to thrive) in adult Review of Systems Psychiatric: Reports: anxiety, depressed feelings, emotional problems Physical Exam General Appearance: no apparent distress, alert Neurologic: oriented x 3, responsive, depressed affect Last 24 Hour Vital Signs Date Time Temp Pulse Resp B/P (MAP) Pulse Ox O2 Delivery O2 Flow Rate FiO2 07/12/18 11:52 97.8 65 18 115/70 (85) 96 07/12/18 09:00 Room Air 07/12/18 08:56 97.4 07/12/18 08:27 139/90 07/12/18 08:27 73 139/90 07/12/18 08:24 73 139/90 07/12/18 08:00 97.5 69 18 111/73 (86) 96 07/12/18 04:00 97.4 63 20 136/82 (100) 100 07/12/18 00:00 97.4 63 20 131/78 (95) 96 07/11/18 22:41 Room Air 07/11/18 21:28 67 131/85 07/11/18 21:00 Room Air 07/11/18 20:00 97.6 67 20 131/85 (100) 99 07/11/18 18:17 98.1 60 14 129/76 (93) 97 07/11/18 18:02 98.4 63 16 147/83 100 Room Air 07/11/18 18:02 98.4 65 15 132/86 100 Room Air 07/11/18 17:00 65 15 132/86 100 07/11/18 14:34 62 10 132/80 100 Intake and Output 07/11/18 07/12/18 19:00 07:00 Intake Total 2400 ml 320 ml Balance 2400 ml 320 ml Intake Oral 320 ml IV Total 2400 ml # Voids 1 2 Laboratory Tests Test 07/12/18 07:15 White Blood Count 6.6 K/UL (4.8-10.8) Red Blood Count 4.55 M/UL (4.70-6.10) L Hemoglobin 13.0 G/DL (14.2-18.0) L Hematocrit 39.1 % (42.0-52.0) L Mean Corpuscular Volume 86 FL (80-99) Mean Corpuscular Hemoglobin 28.6 PG (27.0-31.0) Mean Corpuscular Hemoglobin Concent 33.3 G/DL (32.0-36.0) Red Cell Distribution Width 12.0 % (11.6-14.8) Platelet Count 158 K/UL (150-450) Mean Platelet Volume 9.6 FL (6.5-10.1) Neutrophils (%) (Auto) 58.8 % (45.0-75.0) Lymphocytes (%) (Auto) 27.0 % (20.0-45.0) Monocytes (%) (Auto) 7.7 % (1.0-10.0) Eosinophils (%) (Auto) 5.0 % (0.0-3.0) H Basophils (%) (Auto) 1.6 % (0.0-2.0) Sodium Level 141 MMOL/L (136-145) Potassium Level 3.9 MMOL/L (3.5-5.1) Chloride Level 106 MMOL/L (98-107) Carbon Dioxide Level 27 MMOL/L (21-32) Anion Gap 8 mmol/L (5-15) Blood Urea Nitrogen 10 mg/dL (7-18) Creatinine 0.8 MG/DL (0.55-1.30) Estimat Glomerular Filtration Rate > 60 mL/min (>60) Glucose Level 74 MG/DL (74-106) Calcium Level 9.0 MG/DL (8.5-10.1) Total Bilirubin 0.5 MG/DL (0.2-1.0) Aspartate Amino Transf (AST/SGOT) 18 U/L (15-37) Alanine Aminotransferase (ALT/SGPT) 24 U/L (12-78) Alkaline Phosphatase 192 U/L (46-116) H Total Protein 6.6 G/DL (6.4-8.2) Albumin 2.8 G/DL (3.4-5.0) L Globulin 3.8 g/dL Albumin/Globulin Ratio 0.7 (1.0-2.7) L Triglycerides Level 87 MG/DL (30-150) Cholesterol Level 96 MG/DL (< 200) LDL Cholesterol 43 mg/dL (<100) HDL Cholesterol 37 MG/DL (40-60) L Cholesterol/HDL Ratio 2.6 (3.3-4.4) L Thyroid Stimulating Hormone (TSH) 1.654 uiU/mL (0.358-3.740) Height (Feet): 5 Height (Inches): 6.00 Weight (Pounds): 180 Medications Current Medications Medications (Trade) Dose Ordered Sig/Brenden Route PRN Reason Start Time Stop Time Status Last Admin Dose Admin Acetaminophen (Tylenol) 650 mg Q4H PRN ORAL fever 07/11/18 14:15 08/10/18 14:14 Al Hydroxide/Mg Hydroxide (Mylanta II) 30 ml Q6H PRN ORAL dyspepsia 07/11/18 14:15 08/10/18 14:14 Amlodipine Besylate (Norvasc) 10 mg DAILY ORAL 07/12/18 09:00 08/11/18 08:59 07/12/18 08:27 Cyclobenzaprine HCl (Flexeril) 10 mg DAILY ORAL 07/12/18 09:00 08/11/18 08:59 07/12/18 08:26 Dextrose (Dextrose 50%) 25 ml Q30M PRN IV Hypoglycemia 07/11/18 22:45 08/10/18 22:44 Dextrose (Dextrose 50%) 50 ml Q30M PRN IV Hypoglycemia 07/11/18 22:45 08/10/18 22:44 Fluoxetine HCl (PROzac) 20 mg DAILY ORAL 07/12/18 12:45 08/11/18 12:44 Insulin Aspart (NovoLOG) BEFORE MEALS AND HS SUBQ 07/12/18 06:30 08/11/18 06:29 Lisinopril (Prinivil) 40 mg DAILY ORAL 07/12/18 09:00 08/11/18 08:59 07/12/18 08:27 Metoprolol Tartrate (Lopressor) 100 mg EVERY 12 HOURS ORAL 07/11/18 21:00 08/10/18 20:59 07/12/18 08:24 Olanzapine (ZyPREXA) 10 mg BEDTIME ORAL 07/12/18 21:00 08/11/18 20:59 Polyethylene Glycol (Miralax) 17 gm HSPRN PRN ORAL Constipation 07/11/18 14:15 08/10/18 14:14 07/11/18 21:32 Zolpidem Tartrate (Ambien) 5 mg HSPRN PRN ORAL Insomnia 07/11/18 14:15 07/18/18 14:14 Assessment/Plan Problem List: (1) MDD (major depressive disorder), recurrent episode, severe ICD Codes: F33.2 - Major depressive disorder, recurrent severe without psychotic features SNOMED: 365489542332 (2) Failure to thrive SNOMED: 75581813 Assessment/Plan dc abilify zyprexa 10mg po qhs prozac 20mg qam recommend transferring to psych facility when medically cleared. Fernanda Díaz MD Jul 12, 2018 12:50
--- NOTE | 2018-07-12 14:12 | NUR ---
NURSE NOTES:WOUND CARE NOTES:Pt admitted with non-blanchable erythema to sacrum with surrounding dark skin tone without induration. Heels are intact .No other skin concerns noted. Tx.Plan:Apply Moisture Barrier paste to sacrum .Cover with Optifoam drsg. Change every 3 days and prn. Reposition at least every 2hours or as tolerated. Apply Cavilon Skin Barrier wipes to both heels.Off-load heels with pillow. Addendum: 07/12/18 at 1419 by Jessica Bishop LVN Add to Tx.Plan: Support Surface mattress.
--- NOTE | 2018-07-12 14:36 | NUR ---
RD ASSESSMENT & RECOMMENDATIONS SEE CARE ACTIVITY FOR COMPLETE ASSESSMENT DAILY ESTIMATED NEEDS: Needs based on DM, cardiac, 72.7kg 25-28 kcals/kg 6036-7238 total kcals 1-1.5 g protein/kg 73-109 g total protein 25-30 mL/kg 3313-3863 total fluid mLs NUTRITION DIAGNOSIS: Increased protein needs r/t skin integrity and wasting as evidenced by pt w/ non-blanchable erythema to sacrum w/ mild to moderate BL LE wasting. CURRENT DIET: NPO (was [facility]) PO DIET RECOMMENDATIONS: As able-> [facility]/ texture as tolerated ADDITIONAL RECOMMENDATIONS: 1) Obtain a calibrated bed scale wt-> adm w/ FTT 2) Add high protein snacks BID in b/w meals 3) Updated A1C for eval 4) Monitor po intake closely
--- NOTE | 2018-07-12 14:44 | NUR ---
NURSE NOTES: LISA of abdomen done. resumed diet.
[2018-07-12 16:00] VITALS: BP 111/73
--- NOTE | 2018-07-12 16:32 | Diagnostic Imaging Report ---
Indication: Abnormal liver function tests Technique: Riddle-scale and duplex images of the upper abdomen were obtained. Doppler interrogation of the portal and hepatic vessels Comparison: none Findings: Gallbladder is not visualized. Common bile duct measures 3 mm in diameter. No intrahepatic biliary ductal dilatation. Liver demonstrates normal echogenicity, no focal abnormality. Portal vein and hepatic veins are patent. Pancreas is unremarkable. Spleen is unremarkable. Left kidney measures 10.4 cm in length. Right kidney measures 10.2 cm length. Both kidneys demonstrate normal echogenicity. There is no hydronephrosis. No focal abnormality . Non-aneurysmal abdominal aorta . Impression: Nonvisualized gallbladder. Possibly contracted and obscured by adjacent bowel gas, as a chest CT dated 08/11/2017 demonstrates a contracted gallbladder, recent chest radiograph demonstrates no evidence of cholecystectomy clips. Could also be surgically absent. Correlate with surgical history Negative for dilated bile ducts Negative for other significant abnormality
--- NOTE | 2018-07-12 19:03 | NUR ---
HAND-OFF: Report given to Lolly.
--- NOTE | 2018-07-12 19:50 | NUR ---
Patient awake in bed, denies pain, no s/s of acute distress. IV site sites (2) asymptomatic, dressing dry and intact, both on saline lock. Bed on lowest position, call light and belongings within reach, 2 siderails up. Will monitor blood glucose closely.
[2018-07-12 20:00] VITALS: BP 127/82
[2018-07-12] MEDS: OLANZapine 10mg tab ORAL SCH (21:28)
[2018-07-13] VITALS: BP 147/87
[2018-07-13 04:00] VITALS: BP 140/90
[2018-07-13] MEDS: NovoLOG Insulin Flexpen SUBQ SCH ×4 (06:13→20:24)
--- NOTE | 2018-07-13 07:15 | NUR ---
NURSE NOTES: Received patient in bed eating breakfast no sign of distress, patient AOX4, verbally responsive. HL are patent and intact. Bed in lowest position. siderails are up for safety. Call light within reach. Will continue to monitor. RODRÍGUEZ ELI
--- NOTE | 2018-07-13 07:37 | NUR ---
HAND-OFF: Report given to RODRÍGUEZ Jacob.
[2018-07-13 08:00] VITALS: BP 138/85
[2018-07-13] MEDS: Cyclobenzaprine 10mg Tab ORAL SCH (08:34)
[2018-07-13] MEDS: Lisinopril 20mg tab ORAL SCH (08:35)
[2018-07-13 11:56] VITALS: BP 135/84
[2018-07-13 16:00] VITALS: BP 128/80
--- NOTE | 2018-07-13 18:58 | NUR ---
HAND-OFF: Report given to RODRÍGUEZ Raymundo RN.
--- NOTE | 2018-07-13 19:38 | NUR ---
NURSE NOTES: Received patient comfortably sleeping.Kept clean and dry.
[2018-07-13 20:02] VITALS: BP 137/82
[2018-07-13] MEDS: OLANZapine 10mg tab ORAL SCH (20:24)
--- NOTE | 2018-07-13 20:55 | Pulmonology Progress Note ---
Assessment/Plan Assessment/Plan 1. Poor appetite and weight loss. 2. History of hypertension. 3. History of coronary bypass surgery. 4. Schizoaffective disorder. FU valdez if negative dc back to [facility] fu labs next week encourage po home meds dc planning Subjective Constitutional: Reports: no symptoms HEENT: Repors: no symptoms Respiratory: Reports: no symptoms Cardiovascular: Reports: no symptoms Allergies: Coded Allergies: No Known Allergies (Unverified , 08/11/17) Subjective awake no distrss minimal po no cp nv or bleeding no t oob valdez complted this am report pending Objective Last 24 Hour Vital Signs Date Time Temp Pulse Resp B/P (MAP) Pulse Ox O2 Delivery O2 Flow Rate FiO2 07/13/18 20:24 63 137/82 07/13/18 20:12 Room Air 07/13/18 20:02 97.9 63 18 137/82 (100) 100 07/13/18 16:00 98.4 68 17 128/80 (96) 96 07/13/18 11:56 98.1 64 18 135/84 (101) 100 07/13/18 08:50 Room Air 07/13/18 08:35 97 140/90 07/13/18 08:35 140/90 07/13/18 08:34 97 140/90 07/13/18 08:00 97.5 68 17 138/85 (102) 99 07/13/18 04:00 98.8 97 17 140/90 (107) 97 07/13/18 00:00 98.6 99 18 147/87 (107) 99 07/12/18 21:28 66 127/82 07/12/18 21:00 Room Air Intake and Output 07/12/18 07/13/18 19:00 07:00 Intake Total 600 ml Balance 600 ml Intake Oral 600 ml # Voids 3 3 General Appearance: WD/WN Respiratory/Chest: lungs clear, normal breath sounds Cardiovascular: normal rate, regular rhythm Abdomen: soft, non tender, no organomegaly, no mass Extremities: no clubbing Skin: no rash Neurologic/Psychiatric: oriented x 3 Lymphatic: no neck adenopathy Microbiology Date/Time Source Procedure Growth Status 07/11/18 12:30 Nasal Nares MRSA Culture - Final NO METHICILLIN RESISTANT STAPH AUREUS... Complete 07/11/18 12:30 Rectum VRE Culture - Final Enterococcus Faecalis - Vre Complete 07/11/18 12:30 Rectum - Final NO CARBAPENEM-RESISTANT ENTEROBACTERI... Complete Current Medications Medications (Trade) Dose Ordered Sig/Brenden Route PRN Reason Start Time Stop Time Status Last Admin Dose Admin Acetaminophen (Tylenol) 650 mg Q4H PRN ORAL fever 07/11/18 14:15 08/10/18 14:14 Al Hydroxide/Mg Hydroxide (Mylanta II) 30 ml Q6H PRN ORAL dyspepsia 07/11/18 14:15 08/10/18 14:14 Amlodipine Besylate (Norvasc) 10 mg DAILY ORAL 07/12/18 09:00 08/11/18 08:59 07/13/18 08:34 Cyclobenzaprine HCl (Flexeril) 10 mg DAILY ORAL 07/12/18 09:00 08/11/18 08:59 07/13/18 08:34 Dextrose (Dextrose 50%) 25 ml Q30M PRN IV Hypoglycemia 07/11/18 22:45 08/10/18 22:44 Dextrose (Dextrose 50%) 50 ml Q30M PRN IV Hypoglycemia 07/11/18 22:45 08/10/18 22:44 Fluoxetine HCl (PROzac) 20 mg DAILY ORAL 07/12/18 12:45 08/11/18 12:44 07/13/18 08:34 Insulin Aspart (NovoLOG) BEFORE MEALS AND HS SUBQ 07/12/18 06:30 08/11/18 06:29 07/13/18 16:50 Lisinopril (Prinivil) 40 mg DAILY ORAL 07/12/18 09:00 08/11/18 08:59 07/13/18 08:35 Metoprolol Tartrate (Lopressor) 100 mg EVERY 12 HOURS ORAL 07/11/18 21:00 08/10/18 20:59 07/13/18 20:24 Olanzapine (ZyPREXA) 10 mg BEDTIME ORAL 07/12/18 21:00 08/11/18 20:59 07/13/18 20:24 Polyethylene Glycol (Miralax) 17 gm HSPRN PRN ORAL Constipation 07/11/18 14:15 08/10/18 14:14 07/11/18 21:32 Zolpidem Tartrate (Ambien) 5 mg HSPRN PRN ORAL Insomnia 07/11/18 14:15 07/18/18 14:14 Capri Quiroz DO Jul 13, 2018 20:55
--- NOTE | 2018-07-13 23:22 | General Progress Note ---
Assessment/Plan Problem List: (1) MDD (major depressive disorder), recurrent episode, severe ICD Codes: F33.2 - Major depressive disorder, recurrent severe without psychotic features SNOMED: 171330836480 (2) Failure to thrive SNOMED: [id number] Assessment/Plan dc abilify zyprexa 10mg po qhs prozac 20mg qam recommend transferring to psych facility when medically cleared. Subjective Neurologic/Psychiatric: Reports: anxiety, depressed, emotional problems Allergies: Coded Allergies: No Known Allergies (Unverified , 08/11/17) Objective Last 24 Hour Vital Signs Date Time Temp Pulse Resp B/P (MAP) Pulse Ox O2 Delivery O2 Flow Rate FiO2 07/13/18 20:24 63 137/82 07/13/18 20:12 Room Air 07/13/18 20:02 97.9 63 18 137/82 (100) 100 07/13/18 16:00 98.4 68 17 128/80 (96) 96 07/13/18 11:56 98.1 64 18 135/84 (101) 100 07/13/18 08:50 Room Air 07/13/18 08:35 97 140/90 07/13/18 08:35 140/90 07/13/18 08:34 97 140/90 07/13/18 08:00 97.5 68 17 138/85 (102) 99 07/13/18 04:00 98.8 97 17 140/90 (107) 97 07/13/18 00:00 98.6 99 18 147/87 (107) 99 Intake and Output 07/12/18 07/13/18 19:00 07:00 Intake Total 600 ml Balance 600 ml Intake Oral 600 ml # Voids 3 3 Height (Feet): 5 Height (Inches): 6.00 Weight (Pounds): 180 General Appearance: no apparent distress, alert Neurologic: oriented x 3, responsive, depressed affect Fernanda Díaz MD Jul 13, 2018 23:22
[2018-07-14 00:13] VITALS: BP 135/79
[2018-07-14 04:00] VITALS: BP 144/87
[2018-07-14] MEDS: NovoLOG Insulin Flexpen SUBQ SCH ×2 (06:15→12:32)
--- NOTE | 2018-07-14 07:15 | NUR ---
HAND-OFF: Report given to Velvet Crawford LVN.
--- NOTE | 2018-07-14 07:30 | NUR ---
NURSE NOTES: Received patient in no apparent distress. A&OX4, verbally responsive and able to make things known. IV sites are patent and intact. skin is intact. SPR inplaced for skin integrity. Bed in lowest position. siderails are up for safety. Call light within reach. Will continue to monitor.
[2018-07-14 08:00] VITALS: BP 140/84
--- NOTE | 2018-07-14 08:39 | NUR ---
NURSE NOTES: Received patient awake, eating breakfast. with no sob. Denies any pain at this time. All needs attended. Call light made within reach. Will continue to monitor.
[2018-07-14] MEDS: Cyclobenzaprine 10mg Tab ORAL SCH (09:02)
[2018-07-14] MEDS: Lisinopril 20mg tab ORAL SCH (09:03)
[2018-07-14 12:00] VITALS: BP 142/82
--- NOTE | 2018-07-14 12:11 | NUR ---
NURSE NOTES: report given to [facility]. No family members indicated on the face sheet. awaits for an ambulance.
--- NOTE | 2018-07-14 15:30 | NUR ---
NURSE NOTES: discharged to [facility] in stable condition. removed IV sites. personal belongings, dentures were given to ambulance personnel.
--- NOTE | 2018-07-14 21:29 | General Progress Note ---
Assessment/Plan Problem List: (1) MDD (major depressive disorder), recurrent episode, severe ICD Codes: F33.2 - Major depressive disorder, recurrent severe without psychotic features SNOMED: 274412367040 (2) Failure to thrive SNOMED: 87785917 Status: stable, progressing Assessment/Plan zyprexa 10mg po qhs prozac 20mg qam recommend transferring to psych facility when medically cleared. Subjective Neurologic/Psychiatric: Reports: anxiety, depressed, emotional problems Allergies: Coded Allergies: No Known Allergies (Unverified , 08/11/17) Objective Last 24 Hour Vital Signs Date Time Temp Pulse Resp B/P (MAP) Pulse Ox O2 Delivery O2 Flow Rate FiO2 07/14/18 12:00 97.5 66 17 142/82 (102) 100 07/14/18 09:32 98.0 07/14/18 09:03 140/84 07/14/18 09:01 63 140/84 07/14/18 09:00 63 140/84 07/14/18 09:00 Room Air 07/14/18 08:00 98.0 63 17 140/84 (102) 98 07/14/18 04:00 97.7 60 18 144/87 (106) 98 07/14/18 00:13 98.1 67 18 135/79 (97) 100 Intake and Output 07/13/18 07/14/18 19:00 07:00 Intake Total 500 ml 240 ml Balance 500 ml 240 ml Intake Oral 240 ml Other 500 ml # Voids 3 # Bowel Movements 1 Height (Feet): 5 Height (Inches): 6.00 Weight (Pounds): 180 General Appearance: WD/WN, no apparent distress, alert Neurologic: oriented x 3, responsive, depressed affect Fernanda Díaz MD Jul 14, 2018 21:29
--- NOTE | 2018-07-15 20:49 | Discharge Summary ---
Discharge Summary Discharge Summary _ DATE OF ADMISSION: 07/11/2018 DATE OF DISCHARGE: 07/14/2018 DISCHARGED BY: Dr. Fu REASON FOR ADMISSION: 52 years old male with past medical history of CVA with right hemiparesis, hypertension, chronic kidney disease, diabetes mellitus, history of coronary bypass graft, cardiac defibrillator, hyperlipidemia, schizoaffective disorder, depression, with DNR status per [facility], was sent from the prison facility due to poor oral intake. No reported abdominal pain, nausea or vomiting. Upon evaluation vital signs reveal elevated blood pressure 156/96, otherwise stable vital signs. Troponin negative. EKG revealed sinus rhythm, no acute ischemic changes . No leukocytosis, hemoglobin 13.5, hematocrit 40.1. Lactic acid 1.1. Unremarkable chemistry. Albumin 2.9. Alkaline phosphatase 203 Urinalysis revealed +3 protein, consistent with known history of chronic kidney disease, no evidence of UTI. Chest x-ray revealed left-sided AICD. No acute cardiopulmonary process noted. Patient admitted for further management CONSULTANTS: psychiatrist [facility] COURSE: Patient admitted to medical surgical floor. Patient started on gentle IV hydration. Abdominal ultrasound revealed no evidence of dilated bile ducts, no other acute intra-abdominal pathology. Venous duplex bilateral lower extremity revealed no evidence of acute DVT. Nutritional assessment revealed moderate nutritional risk. Dietary recommendation regarding protein supplements implemented in plan of care. Food intake was closely monitored and was sufficient. Blood pressure was managed with multiply anti-hypertensive medications, including calcium channel ivan, BRIT inhibitor and beta-ivan. Blood pressure stabilized. Blood sugar was managed with sliding scale of insulin. Psychiatrist seen and evaluated patient , and diagnosed patient with major depressive disorder, severe with recurrent episode and failure to thrive. Psychiatric medication regimen was optimized. Supportive care provided. Patient stabilized and was transferred to prison facility for continuation of care FINAL DIAGNOSES: Poor appetite and weight loss with protein calorie malnutrition Hypertension History of coronary bypass surgery and AICD Major depressive disorder , severe Diabetes mellitus History of CVA with right hemiplegia DNR status DISCHARGE MEDICATIONS: See Medication Reconciliation list. DISCHARGE INSTRUCTIONS: Patient was discharged to the prison facility. Follow up with medical doctor at the facility. I have been assigned to dictate discharge summary for this account. I was not involved in the patient's management. Aurelia Damon NP Jul 15, 2018 20:49
--- NOTE | 2018-07-16 10:12 | NUR ---
*-* INSURANCE *-* ALL CLINICALS HAVE BEEN FAXED TO: [id number] NICOLASM:AILEEN F:[phone]
--- NOTE | 2018-07-16 14:20 | Diagnostic Imaging Report ---
APPROVED REPORT CPT Code: 29892 Present Symptoms Lower Extremity Pain: Bilateral BILATERAL: Imaging reveals a patent deep venous system bilaterally. There is no evidence of thrombus within the femoral, popliteal or tibial segments. The greater saphenous veins are also within normal limits. Doppler indicates normal spontaneous flow within these segments.
== END 2018-07-14 15:30 | DRG 641 ==
LOC: EDBD 12:15 → EDUNIT# 12:15 → EMR 13:00 → 4E 15:15 → EDBEDREQ 17:16 → 4E 07-13 08:40
DX: E46 Unspecified protein-calorie malnutrition (principal); I69.951 Hemiplegia and hemiparesis following unspecified cerebrovascular disease affecting right dominant side; F33.9 Major depressive disorder, recurrent, unspecified; R63.4 Abnormal weight loss; F25.9 Schizoaffective disorder, unspecified; R63.0 Anorexia; I12.9 Hypertensive chronic kidney disease with stage 1 through stage 4 chronic kidney disease, or unspecified chronic kidney disease; N18.9 Chronic kidney disease, unspecified; E78.5 Hyperlipidemia, unspecified; E11.22 Type 2 diabetes mellitus with diabetic chronic kidney disease; Z66 Do not resuscitate; F32.9 Major depressive disorder, single episode, unspecified; R62.7 Adult failure to thrive; Z68.29 Body mass index [BMI] 29.0-29.9, adult; Z79.82 Long term (current) use of aspirin; Z95.810 Presence of automatic (implantable) cardiac defibrillator
CPT/HCPCS: 36415; 71045; 76700; 80053; 80061; 81003; 82550; 82962; 83605; 84443; 84484; 85025; 87081; 93005; 93970; 96360; 99285; J1815